=== PATIENT | female | born 1995 | race Caucasian/White ===

== ENCOUNTER 2024-06-19 23:38 | Emergency (ER) | payer MEDICAID, SELFPAY ==
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
[2024-06-19 23:41] VITALS: BP 133/90; PULSE 114; RESP 18; TEMP 36.8; O2SAT 98; BMI 34.0
[2024-06-20 00:38] VITALS: BP 120/74; PULSE 95; RESP 18; TEMP 37.2; O2SAT 95
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
[2024-06-20] MEDS: Acetaminophen 325 MG TABLET 975 MG PO (01:42)
[2024-06-20] MEDS: Ketorolac Tromethamine 15 MG/ML VIAL IM (01:42)
[2024-06-20] MEDS: Ondansetron ODT 4 MG TAB.RAPDIS TRANSLINGU (01:42)
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
[2024-06-20] MEDS: cefTRIAXone sodium 500 MG, Lidocaine HCl 1 % MPF 1 ML IM (02:54)
[2024-06-20] MEDS: levonorgestreL 1.5 MG TABLET PO (02:57)
--- NOTE | 2024-06-20 02:57 | PC.NURSE ---
unable to scan meds for SANE doxycycline and flagyl, awaiting pharmacy prior to administration.
[2024-06-20 04:00] VITALS: BP 108/67; PULSE 74; RESP 18; TEMP 36.6; O2SAT 100
[2024-06-20 04:07] LABS: Alanine Aminotransferase 17 U/L (0-31); Aspartate Amino Transferase 16 U/L (5-31); Creatinine Clr Calc Pharmacy 69.9; Estimated Glomerular Filt Rate 56
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
[2024-06-20 04:11] LABS: HCG Quantitative < 2 mIU/mL
[2024-06-20 04:34] LABS: Syphilis Screen Nonreactive (Nonreactive)
[2024-06-20 04:45] LABS: Appearance Urine Cloudy; Color Urine Yellow; Glucose Urine UA Negative (Negative); Leukocyte Esterase Urine Small (1+) (Negative); Nitrite Urine Negative (Negative); Specific Gravity - Urine 1.025 (1.005-1.025); UMIC TRIGGER UACC YES; Urine Blood Negative (Negative); Urine Ketones Trace mg/dL (Negative); Urine Protein 30 (1+) mg/dL (Neg-Trace)
[2024-06-20 04:53] LABS: HBS Num1 0.93 mIU/mL (0-7.99); HBsAGNum1 0.37 S/CO (0.00-0.99); HIV AB/AG Nonreactive (Nonreactive); HIV Num 1 0.07 S/CO (0.00-0.99); Hepatitis B Surface Antigen Negative (Negative); ~HepC Num1 0.09 S/CO (0.00-0.79); ~Hepatitis B Surface Antibody NONREACTIVE (Nonreactive); ~Hepatitis C Antibody Nonreactive (Nonreactive)
[2024-06-20 04:59] LABS: Bacteria Urine 4+ (None Seen); Granular Casts Urine Present; RBC Urine 0-2 /HPF (0-2); UACC Culture Trigger YES
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
[2024-06-20 06:00] VITALS: BP 119/72; PULSE 80; RESP 18; TEMP 36.7; O2SAT 99
[2024-06-20 07:16] LABS: CT PCR NOT DETECTED (Not Detect.); NG PCR NOT DETECTED (Not Detect.)
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
[2024-06-20] MEDS: SANE Doxycycline Monohydrate 100 MG CAPSULE PO (09:56)
[2024-06-20] MEDS: SANE metroNIDAZOLE 500 MG TABLET KIT PO (09:57)
--- NOTE | 2024-06-20 10:07 | PC.NURSE ---
Care of Pt assumed at change of shift. RELAY TECHNICIAN present with exam in process. Upon completion of DEO exam, Pt medicated with first dose of Doxy and Flagyl and given instructions for remained of doses. Custody of remaining doses given to Pt. Pt is alert and eating breakfast, baby at bedside. NAD noted at this time. Case management to speak with Pt regarding resources.
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
[2024-06-20 11:01] VITALS: BP 107/64; PULSE 92; RESP 18; TEMP 37.3; O2SAT 95
[2024-06-20] MEDS: SANE Dolutegravir Sodium 50 MG TAB KIT PO (11:58)
[2024-06-20] MEDS: SANE Emtricit/Tenofov DF 200/300 TABLET KIT 1 TAB PO (11:58)
--- NOTE | 2024-06-20 12:02 | PC.NURSE ---
Pt requests to be placed on PrEP regimen. Pt medicated by this RN with first dose. Additional 3 doses given for Pt to take with instruction. Reviewed side effects with Pt and advised to take all doses with food or shortly after a meal. Pt is resting quietly on stretcher with baby at bedside. NAD Awaiting d/c paperwork
[2024-06-20 12:28] VITALS: BP 107/64; PULSE 92; RESP 18; TEMP 37.3; O2SAT 95
== END 2024-06-20 12:50 | disposition home or self-care (01) ==
PROVIDERS: Nurse Practitioner Family; Emergency Provider Emergency Medicine
DX: S19.9XXA Unspecified injury of neck, initial encounter (principal); S50.811A Abrasion of right forearm, initial encounter; T76.21XA Adult sexual abuse, suspected, initial encounter; M79.602 Pain in left arm; R11.0 Nausea; M25.531 Pain in right wrist; M54.2 Cervicalgia; M54.50 Low back pain, unspecified; R51.9 Headache, unspecified; M25.561 Pain in right knee; M25.521 Pain in right elbow; Y04.2XXA Assault by strike against or bumped into by another person, initial encounter; Y93.89 Activity, other specified; Y92.89 Other specified places as the place of occurrence of the external cause; Y99.8 Other external cause status; Z20.2 Contact with and (suspected) exposure to infections with a predominantly sexual mode of transmission; Z79.899 Other long term (current) drug therapy
CPT/HCPCS: 36415; 70450; 72100; 72125; 73070; 73110; 73564; 81001; 82565; 84450; 84460; 84702; 86706; 86780; 86803; 87086; 87088; 87186; 87340; 87389; 87491; 87591; 96372; 99284; J0696; J1885